=== PATIENT | male | born 1960 | race Caucasian/White ===

== ENCOUNTER → 2017-02-26 | Outpatient (CLI) | payer BC, OTHER ==
[2017-02-26 12:59] LABS: BASO % 0.5 %; BASO ABS # 0.03 K/uL (0-0.2); COMPLETE YES; EOS % 2.4 %; HEMATOCRIT 46.1 % (42-52); IG% 0.2 %; LYMPH % 24.9 %; LYMPH ABS # 1.36 K/uL (1.2-3.4); MEAN CELL VOLUME 85.5 fL (80-100); MEAN CORPUSCULAR HEMOGLOBIN 29.9 pg (25-34); MEAN CORPUSCULAR HGB CONC 34.9 g/dl (32-36); MEAN PLATELET VOLUME 10.2 fL (7.4-10.4); MONO % 6.8 %; NEUT % 65.2 %; PLATELET COUNT 158 K/uL (130-400); RED BLOOD COUNT 5.39 M/uL (4.7-6.1); WHITE BLOOD COUNT 5.46 K/uL (4.8-10.8)
[2017-02-26 13:09] LABS: ALT/SGPT 23 U/L (12-78); AST/SGOT 19 U/L (15-37); BLOOD UREA NITROGEN 13 mg/dl (7-18); CALCIUM 8.9 mg/dl (8.5-10.1); CARBON DIOXIDE 26 mmol/L (21-32); CHLORIDE 106 mmol/L (98-107); CHOLESTEROL 169 mg/dl (0-200); GLUCOSE 102 mg/dl (70-99); POTASSIUM 4.2 mmol/L (3.5-5.1); SODIUM 139 mmol/L (136-145)
[2017-02-26 13:19] LABS: ALB/GLOB RATIO 1.3 (0.9-2); ALKALINE PHOSPHATASE 79 U/L (45-117); CHOLESTEROL/HDL RATIO 4.6; HDL CHOLESTEROL 37 mg/dl; PROSTATE SPECIFIC ANTIGEN 0.266 ng/ml (0.000-4.000); TRIGLYCERIDES 121 mg/dl (0-150); VERY LOW DENSITY LIPOPROT CALC 24 mg/dl
== END | disposition home or self-care (01) ==
LOC: C.LABSPEC 12:20
PROVIDERS: ATTEND Internal Medicine
DX: R53.83 Other fatigue (principal); E78.5 Hyperlipidemia, unspecified; R30.0 Dysuria; Z11.59 Encounter for screening for other viral diseases

== ENCOUNTER 2017-07-31 04:48 | Inpatient (IN) | payer BC ==
[~2017-07-31] VITALS: Ht 185.4 cm; Wt 136.6 kg
[2017-07-31] MEDS: SODIUM CHLORIDE 0.9% 1000ML 1,000 ML IV SCH ×2 (05:12→12:45)
[2017-07-31 05:29] LABS: BASO % 0.8 %; BASO ABS # 0.05 K/uL (0-0.2); EOS % 1.2 %; EOS ABS # 0.07 K/uL (0-0.5); HEMATOCRIT 47.6 % (42-52); HEMOGLOBIN 17.1 g/dL (14.0-18.0); IG# 0.01 K/uL (0.00-0.02); LYMPH % 21.9 %; LYMPH ABS # 1.29 K/uL (1.2-3.4); MEAN CELL VOLUME 85.9 fL (80-100); MEAN CORPUSCULAR HEMOGLOBIN 30.9 pg (25-34); MEAN CORPUSCULAR HGB CONC 35.9 g/dl (32-36); MEAN PLATELET VOLUME 9.5 fL (7.4-10.4); MONO % 10.5 %; MONO ABS # 0.62 K/uL (0.11-0.59); NEUT % 65.4 %; NEUT ABS # 3.85 K/uL (1.4-6.5); PLATELET COUNT 144 K/uL (130-400); RED CELL DISTRIBUTION WIDTH CV 12.7 % (11.5-14.5); RED CELL DISTRIBUTION WIDTH SD 40.4 fL (36.4-46.3); WHITE BLOOD COUNT 5.89 K/uL (4.8-10.8)
[2017-07-31 05:39] LABS: PTT PATIENT 24.7 SECONDS (21.0-31.0)
[2017-07-31] MEDS ORDERED: ASCO500T16 PO (05:39)
[2017-07-31] MEDS ORDERED: MULT-506 PO (05:40)
[2017-07-31] MEDS ORDERED: OMEG10007 PO (05:41)
[2017-07-31 05:48] LABS: ALBUMIN 4.3 gm/dl (3.4-5.0); BLOOD UREA NITROGEN 11 mg/dl (7-18); CALCIUM 9.5 mg/dl (8.5-10.1); CARBON DIOXIDE 30 mmol/L (21-32); CREATININE 1.03 mg/dl (0.60-1.40); GLUCOSE 107 mg/dl (70-99); SODIUM 138 mmol/L (136-145)
[2017-07-31 05:53] LABS: ALKALINE PHOSPHATASE 87 U/L (45-117); ALT/SGPT 24 U/L (12-78); AST/SGOT 17 U/L (15-37); CKMB 2.8 ng/ml (0.5-3.6); TOTAL PROTEIN 7.8 gm/dl (6.4-8.2)
--- NOTE | 2017-07-31 07:40 | DIAGNOSTIC IMAGING REPORT ---
HEAD CT NONCONTRAST CT DOSE: 1228.53 mGy.cm HISTORY: Left-sided body numbness. Stroke TECHNIQUE: Multiaxial CT images of the head were performed without the use of intravenous contrast. Automated exposure control was utilized for this study. A dose lowering technique was utilized adhering to the principles of ALARA. Comparison: None. Findings: The paranasal sinuses and mastoid air cells are clear. The calvarium and skull base are intact. The ventricles and sulci are within normal limits. There is no mass, hematoma, midline shift, or acute infarct. Mild motion artifact. Impression: Mild motion artifact. No acute intracranial abnormality. Electronically signed by: Estrada Louis M.D. 07/31/2017 7:38 AM Dictated Date/Time: 07/31/2017 7:36 AM
--- NOTE | 2017-07-31 07:42 | DIAGNOSTIC IMAGING REPORT ---
MRI LUMBAR SPINE W/O CONTRAST CLINICAL HISTORY: severe left leg weakness TECHNIQUE: Sagittal and axial T1, T2 and STIR images were obtained. COMPARISON STUDY: No previous studies for comparison. OBSERVATIONS: The vertebral bodies and posterior elements appear intact. There is no abnormal bony signal present to suggest a marrow replacement process. L1-2: There is a minor circumferential disc bulge. There is a slight triangular configuration of the thecal sac but significant spinal stenosis is not felt to be present. There is no significant foraminal narrowing L2-3: There is a minor circumferential disc bulge. There is a very slight triangle configuration of the thecal sac. Significant spinal stenosis is not felt to be present. There is no significant foraminal narrowing L3-4: There is a minor circumferential disc bulge. There is no significant spinal or foraminal stenosis. L4-5: There is a minimal circumferential disc bulge. There is no significant spinal or foraminal stenosis. L5-S1: No disc protrusions or extrusions. No evidence of spinal canal or neural foraminal compromise. There is rapid tapering of the thecal sac at the S1 level. This is likely developmental. The conus medullaris and cauda equina appear normal. There is severe left-sided hydronephrosis. This likely is secondary to a long-standing UPJ obstruction. IMPRESSION: 1. Mild multilevel spondylitic changes. No evidence of significant spinal or foraminal stenosis. 2. 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 Rapid tapering of the thecal sac at the S1 level, likely developmental Electronically signed by: Benjamín Mitchell M.D. 07/31/2017 7:40 AM Dictated Date/Time: 07/31/2017 7:33 AM
--- NOTE | 2017-07-31 09:47 | EMERGENCY ROOM VISIT NOTE ---
ED Visit Note First contact with patient: 08:32 Patient case was signed out to me at 0700 hrs. by Yoselin Oneill PA-C. This was pending the MRI. The MRI of the lumbar spine does reveal severe left-sided hydronephrosis. There are only minimal degenerative changes in the back. No findings suggest neurologic compromise. I did reexamine the patient, and he does have a gait abnormality. He seems to be experiencing weakness in the left leg. He is somewhat dragging this leg with walking. There is only minimal pain overlying the left gluteal region by the sciatic nerve. Although this certainly could be musculature spasm in the gluteal region/low back causing sciatic radicular symptoms, because of his appreciated deficit of weakness as well as gait abnormality with very minimal pain do believe that further evaluation and management in the inpatient setting is warranted. I did consult the admission team. Please refer to for the documentation regarding his stay. No evidence of CVA on exam.
--- NOTE | 2017-07-31 11:00 | Medical Consult ---
Consultation Date of Consultation: Jul 31, 2017. Attending Physician: Reason for Consultation: left leg numbness/weakness History of Present Illness Mr. 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 He does usually experience the feeling of legs "falling asleep" when he drives however it usually clears up after getting up out of the car. This time the feeling persists. He had some relief after seeing a chiropractor yesterday. Numbness went from both legs to just left leg. He feels like his leg might give out when he walks. He really has no pain and has taking Aleve last night and yesterday. No loss of control of bowel or bladder. He is eating and drinking normally. ROS Constitutional: no chills, aches, sweats or fever Respiratory: no sob,cough, sputum, or wheezing Cardiac: no chest pain, palpitations, edema, orthopnea or lightheadedness GI: no abdominal pain, nausea, vomiting, diarrhea or constipation : no dysuria or hesitancy Extremities: see HPI Skin: no rash All other systems reviewed and negative Past Medical/Surgical History Pmhx 18 years ago for chronic hydronephrosis, polyps on colonoscopy, Family History Father has htn, DMII Mother has A.fib and gout Social History Smoking Status: Never Smoker Smokeless Tobacco Use: No Alcohol Use: none Drug Use: none Marital Status: Housing status: lives with family Immunizations History of Influenza Vaccine: Yes History of Tetanus Vaccine?: Yes History of Pneumococcal: No History of Hepatitis B Vaccine: Yes Allergies Coded Allergies: No Known Allergies (Verified , 06/24/02) Home Medications Scheduled Ascorbic Acid (Ascorbic Acid), 500 MG PO DAILY Fish Oil ([place]-3), 1 CAP PO DAILY Multivitamin (Multivitamin), 1 TAB PO DAILY Social History Smoking Status: Never Smoker Allergies Coded Allergies: No Known Allergies (Verified , 06/24/02) Home Medications Fish oil, multivitamin, vitamin C Current Inpatient Medications Current Inpatient Medications Medications (Trade) Dose Ordered Sig/Torin Route Start Time Stop Time Status Last Admin Dose Admin Sodium Chloride 1,000 ml @ 50 mls/hr Q20H IV 07/31/17 05:12 08/30/17 05:11 07/31/17 05:12 50 MLS/HR Physical Exam Date Time Temp Pulse Resp B/P (MAP) Pulse Ox O2 Delivery O2 Flow Rate FiO2 07/31/17 09:32 67 20 137/62 97 Room Air 07/31/17 08:09 66 18 127/82 98 Room Air 07/31/17 07:27 76 18 129/72 95 Room Air 07/31/17 06:00 62 16 152/88 96 Room Air 07/31/17 05:41 64 18 146/79 98 Room Air 07/31/17 05:37 99 Room Air 07/31/17 05:15 78 07/31/17 04:54 37.0 73 20 148/83 98 Room Air General: no distress Eyes: normal inspection, PERLL Respiratory: chest non tender, clear to auscultation, normal breath sounds, no respiratory distress, no accessory muscle use Cardiac: regular rate and rhythm, no rub or gallop, no murmur, no edema, no jvd GI/: active bowel sounds, no abd pain or tenderness, soft, non distended Extremities: left leg with decreased rom/strength, 1/10 tenderness to palpation left hip/buttock, no pain or masses to palpation along spine or adjacent musculature, normal strength, non tender, uneven gait, able to walk on heels and toes though a bit wobbly with more difficulty on left than right. Able to feel palpation on left leg though somewhat numb with pins and needles, Neuro/Psych: alert and oriented x 3, normal mood and affect, CN II-XII intact, lower extremity reflexes wnl and equal Skin: normal color, dry Laboratory Results Last 24 Hours Test 07/31/17 05:10 07/31/17 09:28 White Blood Count 5.89 K/uL Red Blood Count 5.54 M/uL Hemoglobin 17.1 g/dL Hematocrit 47.6 % Mean Corpuscular Volume 85.9 fL Mean Corpuscular Hemoglobin 30.9 pg Mean Corpuscular Hemoglobin Concent 35.9 g/dl Platelet Count 144 K/uL Mean Platelet Volume 9.5 fL Neutrophils (%) (Auto) 65.4 % Lymphocytes (%) (Auto) 21.9 % Monocytes (%) (Auto) 10.5 % Eosinophils (%) (Auto) 1.2 % Basophils (%) (Auto) 0.8 % Neutrophils # (Auto) 3.85 K/uL Lymphocytes # (Auto) 1.29 K/uL Monocytes # (Auto) 0.62 K/uL Eosinophils # (Auto) 0.07 K/uL Basophils # (Auto) 0.05 K/uL RDW Standard Deviation 40.4 fL RDW Coefficient of Variation 12.7 % Immature Granulocyte % (Auto) 0.2 % Immature Granulocyte # (Auto) 0.01 K/uL Prothrombin Time 10.7 SECONDS Prothromb Time International Ratio 1.0 Activated Partial Thromboplast Time 24.7 SECONDS Partial Thromboplastin Ratio 1.0 Sodium Level 138 mmol/L Potassium Level 4.0 mmol/L Chloride Level 103 mmol/L Carbon Dioxide Level 30 mmol/L Anion Gap 5.0 mmol/L Blood Urea Nitrogen 11 mg/dl Creatinine 1.03 mg/dl Est Creatinine Clear Calc Drug Dose 116.2 ml/min Estimated GFR () 93.7 Estimated GFR (Non- 80.8 BUN/Creatinine Ratio 10.6 Random Glucose 107 mg/dl Calcium Level 9.5 mg/dl Magnesium Level 2.3 mg/dl Total Bilirubin 0.6 mg/dl Direct Bilirubin 0.1 mg/dl Aspartate Amino Transf (AST/SGOT) 17 U/L Alanine Aminotransferase (ALT/SGPT) 24 U/L Alkaline Phosphatase 87 U/L Total Creatine Kinase 222 U/L Creatine Kinase MB 2.8 ng/ml Creatine Kinase MB Ratio 1.3 Troponin I < 0.015 ng/ml Total Protein 7.8 gm/dl Albumin 4.3 gm/dl Urine Color YELLOW Urine Appearance CLEAR Urine pH 7.5 Urine Specific [place] 1.012 Urine Protein NEG Urine Glucose (UA) NEG Urine Ketones NEG Urine Occult Blood NEG Urine Nitrite NEG Urine Bilirubin NEG Urine Urobilinogen NEG Urine Leukocyte Esterase NEG Assessment & Plan Mr. Sierra is a 57 year old man here for left leg numbness and weakness following heavy outdoor work and three days of prolonged driving. Sciatica vis Meralgia paresthetica - MRI did not show any acute changes, patient has had hydronephrosis since 2000 - Head CT negative for acute processes - recommend discharge to home - rest, NSAIDs, can continue chiropractor appointments as this did provide some relief - may want to consider some outpatient PT especially as this is a recurrent issue
[2017-07-31] MEDS ORDERED: ACETAMINOPHEN 325 MG TAB PO PRN (11:30)
[2017-07-31] MEDS ORDERED: POLYETHYLENE (MIRALAX) 17 GM PACK PO PRN (11:30)
--- NOTE | 2017-07-31 11:40 | History and Physical ---
History & Physical Date & Time of Service: Jul 31, 2017 at 10:12 Chief Complaint: Lwr Body Numb,Like Falling Asleep,Loosing Strength Primary Care Physician: James Herr M.D. History of Present Illness Mr. 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 He does usually experience the feeling of legs "falling asleep" when he drives however it usually clears up after getting up out of the car. This time the feeling persists. He had some relief after seeing a chiropractor yesterday. Numbness went from both legs to just left leg. He feels like his leg might give out when he walks. He really has no pain and has taking Aleve last night and yesterday. No loss of control of bowel or bladder. He is eating and drinking normally. ROS Constitutional: no chills, aches, sweats or fever Respiratory: no sob,cough, sputum, or wheezing Cardiac: no chest pain, palpitations, edema, orthopnea or lightheadedness GI: no abdominal pain, nausea, vomiting, diarrhea or constipation : no dysuria or hesitancy Extremities: see HPI Skin: no rash All other systems reviewed and negative Past Medical/Surgical History Pmhx 18 years ago for chronic hydronephrosis, polyps on colonoscopy, Family History Father has htn, DMII Mother has A.fib and gout Social History Smoking Status: Never Smoker Smokeless Tobacco Use: No Alcohol Use: none Drug Use: none Marital Status: Housing status: lives with family Immunizations History of Influenza Vaccine: Yes History of Tetanus Vaccine?: Yes History of Pneumococcal: No History of Hepatitis B Vaccine: Yes Allergies Coded Allergies: No Known Allergies (Verified , 06/24/02) Home Medications Scheduled Ascorbic Acid (Ascorbic Acid), 500 MG PO DAILY Fish Oil ([place]-3), 1 CAP PO DAILY Multivitamin (Multivitamin), 1 TAB PO DAILY Physical Exam Vital Signs Date Time Temp Pulse Resp B/P (MAP) Pulse Ox O2 Delivery O2 Flow Rate FiO2 07/31/17 09:32 67 20 137/62 97 Room Air 07/31/17 08:09 66 18 127/82 98 Room Air 07/31/17 07:27 76 18 129/72 95 Room Air 07/31/17 06:00 62 16 152/88 96 Room Air 07/31/17 05:41 64 18 146/79 98 Room Air 07/31/17 05:37 99 Room Air 07/31/17 05:15 78 07/31/17 04:54 37.0 73 20 148/83 98 Room Air General: no distress Eyes: normal inspection, PERLL Respiratory: chest non tender, clear to auscultation, normal breath sounds, no respiratory distress, no accessory muscle use Cardiac: regular rate and rhythm, no rub or gallop, no murmur, no edema, no jvd GI/: active bowel sounds, no abd pain or tenderness, soft, non distended Extremities: left leg with decreased rom/strength, 1/10 tenderness to palpation left hip/buttock, no pain or masses to palpation along spine or adjacent musculature, normal strength, non tender, uneven gait, able to walk on heels and toes though a bit wobbly with more difficulty on left than right. Able to feel palpation on left leg though somewhat numb with pins and needles, Neuro/Psych: alert and oriented x 3, normal mood and affect, CN II-XII intact, lower extremity reflexes wnl and equal Skin: normal color, dry Diagnostics Laboratory Results Results Past 24 Hours Test 07/31/17 05:10 07/31/17 09:28 Range/Units White Blood Count 5.89 4.8-10.8 K/uL Red Blood Count 5.54 4.7-6.1 M/uL Hemoglobin 17.1 14.0-18.0 g/dL Hematocrit 47.6 42-52 % Mean Corpuscular Volume 85.9 80-100 fL Mean Corpuscular Hemoglobin 30.9 25-34 pg Mean Corpuscular Hemoglobin Concent 35.9 32-36 g/dl Platelet Count 144 130-400 K/uL Mean Platelet Volume 9.5 7.4-10.4 fL Neutrophils (%) (Auto) 65.4 % Lymphocytes (%) (Auto) 21.9 % Monocytes (%) (Auto) 10.5 % Eosinophils (%) (Auto) 1.2 % Basophils (%) (Auto) 0.8 % Neutrophils # (Auto) 3.85 1.4-6.5 K/uL Lymphocytes # (Auto) 1.29 1.2-3.4 K/uL Monocytes # (Auto) 0.62 0.11-0.59 K/uL Eosinophils # (Auto) 0.07 0-0.5 K/uL Basophils # (Auto) 0.05 0-0.2 K/uL RDW Standard Deviation 40.4 36.4-46.3 fL RDW Coefficient of Variation 12.7 11.5-14.5 % Immature Granulocyte % (Auto) 0.2 % Immature Granulocyte # (Auto) 0.01 0.00-0.02 K/uL Prothrombin Time 10.7 9.0-12.0 SECONDS Prothromb Time International Ratio 1.0 0.9-1.1 Activated Partial Thromboplast Time 24.7 21.0-31.0 SECONDS Partial Thromboplastin Ratio 1.0 Sodium Level 138 136-145 mmol/L Potassium Level 4.0 3.5-5.1 mmol/L Chloride Level 103 98-107 mmol/L Carbon Dioxide Level 30 21-32 mmol/L Anion Gap 5.0 3-11 mmol/L Blood Urea Nitrogen 11 7-18 mg/dl Creatinine 1.03 0.60-1.40 mg/dl Est Creatinine Clear Calc Drug Dose 116.2 ml/min Estimated GFR () 93.7 Estimated GFR (Non- 80.8 BUN/Creatinine Ratio 10.6 10-20 Random Glucose 107 70-99 mg/dl Calcium Level 9.5 8.5-10.1 mg/dl Magnesium Level 2.3 1.8-2.4 mg/dl Total Bilirubin 0.6 0.2-1 mg/dl Direct Bilirubin 0.1 0-0.2 mg/dl Aspartate Amino Transf (AST/SGOT) 17 15-37 U/L Alanine Aminotransferase (ALT/SGPT) 24 12-78 U/L Alkaline Phosphatase 87 45-117 U/L Total Creatine Kinase 222 39-308 U/L Creatine Kinase MB 2.8 0.5-3.6 ng/ml Creatine Kinase MB Ratio 1.3 0-3.0 Troponin I < 0.015 0-0.045 ng/ml Total Protein 7.8 6.4-8.2 gm/dl Albumin 4.3 3.4-5.0 gm/dl Urine Color YELLOW Urine Appearance CLEAR CLEAR Urine pH 7.5 4.5-7.5 Urine Specific [place] 1.012 1.000-1.030 Urine Protein NEG NEG Urine Glucose (UA) NEG NEG Urine Ketones NEG NEG Urine Occult Blood NEG NEG Urine Nitrite NEG NEG Urine Bilirubin NEG NEG Urine Urobilinogen NEG NEG Urine Leukocyte Esterase NEG NEG Impression Assessment and Plan Mr. Sierra is a 57 year old man here for left leg weakness Left leg weakness - admit obs med surg - MRI T spine and C spine as patient has loss of sensation on right abdomen as well as left leg - consult neuro - PT/OT - ibuprofen, tylenol for pain Chronic left side hydronephrosis - apparent since 2000, no need for acute intervention Full code SCDs Advanced Directives Existing Advance Directive: No Existing Living Will: No Existing Power of Billing And Accounting Staff Assistant: No Existing Health Care Proxy: No Resuscitation Status full code VTE Prophylaxis Will order VTE Prophylaxis: Yes Reviewed: Pt Seen/Exam by Me History GRAPHIC PRODUCTION ARTIST supervision Note: I interviewed and examined the patient. Discussed with DIGNA Cronin and agree with findings and plan as documented in the note. Any exceptions or clarifications are listed here: Patient is a 57-year-old male who presents with acute onset yesterday of left lower extremity weakness, and bilateral numbness and tingling in the lower extremities. He is also had some pain in the left lower back that radiates through the left buttocks to the hip. He reports taking several long car rides in the last week and typically gets paresthesias in his bilateral legs with long car rides that goes away when he gets up and walks around. He did not have any long car rides yesterday and this occurred. He went to the chiropractor and had his lower back manipulated which did help relieve the symptoms for a couple of hours, but then they returned. He feels great difficulty in walking and feels like he is going to have his left leg give out. He denies neck pain, denies fevers or chills, denies headache. He has no symptoms that he is aware of in his upper extremities. He has no visual changes , no sore throat, no shortness of breath or cough, no chest pain, no abdominal pain, no changes in bowel habits, no dysuria. Other past history as above Vital signs reviewed Gen: AAOx3, NAD HEENT: anicteric sclerae, EOMI CV: RRR no mgr nl S1S2 Pulm: CTAB no wcr Abd: +BS soft NT ND no masses or hernias Ext: no edema, 2+ DP pulses Skin: no rashes, warm/dry Neuro: 5 out of 5 strength in the bilateral upper extremities, right lower extremity with 5 out of 5 strength throughout, left lower extremity with 4 out of 5 strength in the hip flexors, with knee extension and flexion, and great toe dorsiflexion; sensation intact to light touch throughout upper and lower extremities, but with pinprick testing, he is decreased on the right in the entire right lower extremity, as well as all the way up his anterior torso to just below the nipple around T5, he also has decreased sensation to pinprick in the right fifth finger and forearm, but is intact to pinprick at the right deltoid muscle; DTRs-brisk at 2-3+ in the patellar and Achilles bilaterally, as well as 2+ in the left biceps/triceps/brachial radialis, but unable to elicit DTR in the right biceps triceps and brachial radialis, gait is somewhat ataxic All laboratory values reviewed and are within normal limits with regards to CBC , PRP, TSH, Lyme disease negative, ESR normal, CRP normal, troponin negative, LFTs negative or normal, INR normal MRI of the lumbar spine with some mild bulging disks but nothing significant Patient is a 57-year-old male here with left lower extremity weakness, sensory deficit to the level of approximately T5 on the right side of his body, ataxia, concerning for thoracic or cervical spine lesion. -Recommended to check cervical and thoracic spine MRIs with and without contrast to assess for spinal cord lesion-at the time of this dictation, the results were back and showed a lesion at the left C6-7 spinal cord level that was 6 x 3 mm that was not enhancing on postcontrast images. This could be inflammatory versus encephalomalacia or demyelinating process -We will check brain MRI with and without contrast -We will make n.p.o. after midnight for LP in the morning-check routine studies as well as Lyme, MS panel -Consider starting IV Solu-Medrol 1 g daily 3 days after LP as per neurology recommendations -Discussed case with neurology, Dr. Bone, at length on the phone with my findings -Follow-up on RPR and B12 levels when available Documented By: Shelley Camarena
[2017-07-31 12:30] VITALS: BP 134/71; PULSE 78; TEMP 37; O2SAT 98; Ht 185.4 cm; Wt 136.6 kg
[2017-07-31 15:01] VITALS: BP 133/82; PULSE 57; TEMP 36.8; O2SAT 98
[2017-07-31] MEDS: IBUPROFEN 600 MG TAB PO SCH ×2 (16:05→20:20)
[2017-07-31] MEDS ORDERED: IV FLUIDS COMPLETED PRN (16:30)
[2017-07-31] MEDS ORDERED: GADAVIST IV PRN (18:30)
--- NOTE | 2017-07-31 18:47 | DIAGNOSTIC IMAGING REPORT ---
THORACIC SPINE COMBO HISTORY: Pain. Neuropathy. sensory deficit T5 and below on right, LLE weakness TECHNIQUE: Multiplanar multisequence MRI of the thoracic spine was performed both before and after the intravenous administration of contrast. COMPARISON: None. FINDINGS: Unremarkable signal characteristics of the vertebral bodies. Mild/moderate degenerative disc changes throughout. Signal characteristics of the thoracic spinal cord are unremarkable. No evidence for abnormal postcontrast enhancement. Mild multilevel slight disc bulges with mild posterior osteophytic changes throughout. No major compromise of the spinal canal or neural foramina. No significant distention of the central canal. IMPRESSION: Moderate degenerative disc change throughout the entire thoracic region. No major compromise of the spinal canal or neural foramina. No abnormal postcontrast enhancement. Minimal/mild multilevel disc bulges The above report was generated using voice recognition software. It may contain grammatical, syntax or spelling errors. Electronically signed by: Evin Swartz M.D. 07/31/2017 6:46 PM Dictated Date/Time: 07/31/2017 6:42 PM
--- NOTE | 2017-07-31 20:06 | DIAGNOSTIC IMAGING REPORT ---
CERVICAL SPINE COMBO HISTORY: Pain. Neuropathy. T5 and below cervical sensory deficit on right,LLE weakness TECHNIQUE: Multiplanar multisequence MRI of the cervical spine was performed both before and after the use of intravenous contrast. COMPARISON STUDY: None. FINDINGS: Limited study technically due to severe patient motion. Normal signal characteristics of the vertebral bodies. Moderate degenerative disc change throughout. Signal characteristics of the cervical cord are remarkable for a focus of increased signal involving the left lateral aspect of the cervical cord at C6-C7. This shows no significant postcontrast enhancement. No additional focal areas of increased signal are present. This measures 6 x 3.7 mm.. C2-C3: No significant central canal or neural foraminal narrowing. C3-C4: Mild broad-based bulging disc. Minimal impact upon the anterior cervical cord. Moderate osteophytic narrowing or right as well as left neural foramina. C4-C5: Broad-based right posterior disc herniation. Moderate impact upon the right anterior cervical cord. Significant narrowing right as well as left neural foramina. C5-C6: Right lateral bulging disc. Significant narrowing of the right neuroforamina. Broad-based central component is in contact with but shows no deformity of the cervical cord. Mild narrowing left neuroforamina. C6-C7: Broad-based right central disc herniation. Considerable narrowing of the right neural foramina. Moderate narrowing of the left neural foramina. Increased signal left lateral aspect of the cervical cord showing no significant post postcontrast enhancement. C7-T1: Broad-based left central bulging disc. No impact upon the cervical cord. IMPRESSION: 1. Limited study technically due to considerable patient motion. 2. Moderate degenerative disc change throughout the entire cervical region. 3. Multilevel broad-based bulging discs with a right central posterior disc herniation at C4-C5 and C6-C7. 4. Considerable narrowing of multilevel right and to lesser extent left neural foramina as described. 5. Focus of increased signal left cervical cord C6-C7 measuring 6 x 3.7 mm. 6. This shows no abnormal postcontrast enhancement. 7. Differential considerations must include a demyelinating disorder, versus the possibility of cord encephalomalacia due to a variety of entities. Transverse myelitis is considered less likely. The above report was generated using voice recognition software. It may contain grammatical, syntax or spelling errors. Electronically signed by: Evin Swartz M.D. 07/31/2017 8:04 PM Dictated Date/Time: 07/31/2017 7:55 PM
[2017-08-01] VITALS (7 sets, daily range): BP systolic 118–160; BP diastolic 69–85; PULSE 62–73; TEMP 36.8–37; O2SAT 96–98
--- NOTE | 2017-08-01 06:05 | EMERGENCY ROOM VISIT NOTE ---
History First contact with patient: 05:03 Chief Complaint: NEURO SYMPTOMS Stated Complaint: LWR BODY NUMB,LIKE FALLING ASLEEP,LOOSING STRENGTH Nursing Triage Summary: Pt reports yesterday he developed funny sensation along lower back and leg numbness. Pt went to the chiropractor and felt better. Then around 1am he woke up to go to the bathroom and left leg felt numb and had difficulty walking. Pt denies any known back problems. Pt reports he was bending and lifting alot on Friday. History of Present Illness The patient is a 57 year old male who presents to the Emergency Room with complaints of left leg weakness for the past day who went to the chiropractor yesterday with minimal improvement of symptoms. Patient states he did a lot of strenuous activity on Friday. Patient states for the past few days he has been doing a lot of sitting in the car which also causes problems with his back. Patient states his left leg feels weak and has difficulty using it. Patient denies recent illness, bilateral leg weakness, chest pain, dyspnea, fever, chills, loss of bowel or bladder control, saddle anesthesia, IV drug abuse, back pain. No injury to the area. Patient is able to urinate and defecate without issues. Review of Systems An 10 system review of systems was completed with positives and pertinent negatives listed in the HPI. Past Medical/Surgical History Medical Problems: (1) Left leg weakness Kidney stones Social History Smoking Status: Never Smoker Smokeless Tobacco Use: No Drug Use: none Marital Status: Housing Status: lives with family Occupation Status: employed Current/Historical Medications Scheduled Ascorbic Acid (Ascorbic Acid), 500 MG PO DAILY Fish Oil (Huggins-3), 1 CAP PO DAILY Multivitamin (Multivitamin), 1 TAB PO DAILY Physical Exam Vital Signs Date Time Temp Pulse Resp B/P (MAP) Pulse Ox O2 Delivery O2 Flow Rate FiO2 07/31/17 11:14 68 18 130/72 98 Room Air 07/31/17 09:32 67 20 137/62 97 Room Air 07/31/17 08:09 66 18 127/82 98 Room Air 07/31/17 07:27 76 18 129/72 95 Room Air 07/31/17 06:00 62 16 152/88 96 Room Air 07/31/17 05:41 64 18 146/79 98 Room Air 07/31/17 05:37 99 Room Air 07/31/17 05:15 78 07/31/17 04:54 37.0 73 20 148/83 98 Room Air Physical Exam VITALS: Vitals are noted on the nurse's note and reviewed by myself. Vital signs stable. GENERAL: Pleasant male, in no acute distress, nondiaphoretic, well-developed well-nourished. SKIN: The skin was without rashes, erythema, edema, or bruising. There is no tenting of the skin. Capillary reflex less than 2 seconds. HEAD: Normocephalic atraumatic. EARS: External auditory canals clear, tympanic membranes pearly petersen without erythema or effusion bilaterally. EYES: Pupils equal round and reactive to light and accommodation. Conjunctivae without injection, sclerae without icterus. Extraocular movements intact. NOSE: Patent, turbinates without inflammation or discharge. MOUTH: Mucous membranes moist. Pharynx without erythema or exudate. Uvula midline. Airway patent. Tongue does not deviate. NECK: Supple without nuchal rigidity. No lymphadenopathy. No thyromegaly. Cervical spine is nontender. No JVD. HEART: Regular rate and rhythm without murmurs gallops or rubs. LUNGS: Clear to auscultation bilaterally without wheezes, rales or rhonchi. No retractions or accessory muscle use. ABDOMEN: Positive bowel sounds x 4. Normal tympanic percussion. Soft, nontender, without masses or organomegaly. Casey sign negative. No guarding or rebound tenderness. No CVA tenderness MUSCULOSKELETAL: No muscle atrophy, erythema, or edema noted. No thoracic or lumbar tenderness on exam, 5 out of 5 strength in the right leg, 4/5 strength in the left leg. Patellar reflexes +2 equal and present bilaterally. NEURO: Patient was alert and oriented to person place and time. Normal sensation to light and sharp touch. Patient drags his left leg when he ambulates. no other focal neurological deficits. Medical Decision & Procedures Laboratory Results Test 07/31/17 05:10 07/31/17 09:28 RDW Standard Deviation 40.4 fL (36.4-46.3) RDW Coefficient of Variation 12.7 % (11.5-14.5) White Blood Count 5.89 K/uL (4.8-10.8) Red Blood Count 5.54 M/uL (4.7-6.1) Hemoglobin 17.1 g/dL (14.0-18.0) Hematocrit 47.6 % (42-52) Mean Corpuscular Volume 85.9 fL (80-100) Mean Corpuscular Hemoglobin 30.9 pg (25-34) Mean Corpuscular Hemoglobin Concent 35.9 g/dl (32-36) Platelet Count 144 K/uL (130-400) Mean Platelet Volume 9.5 fL (7.4-10.4) Neutrophils (%) (Auto) 65.4 % Lymphocytes (%) (Auto) 21.9 % Monocytes (%) (Auto) 10.5 % Eosinophils (%) (Auto) 1.2 % Basophils (%) (Auto) 0.8 % Neutrophils # (Auto) 3.85 K/uL (1.4-6.5) Lymphocytes # (Auto) 1.29 K/uL (1.2-3.4) Monocytes # (Auto) 0.62 K/uL (0.11-0.59) Eosinophils # (Auto) 0.07 K/uL (0-0.5) Basophils # (Auto) 0.05 K/uL (0-0.2) Immature Granulocyte % (Auto) 0.2 % Immature Granulocyte # (Auto) 0.01 K/uL (0.00-0.02) Erythrocyte Sedimentation Rate 4 mm/hr (0-14) Prothrombin Time 10.7 SECONDS (9.0-12.0) Prothromb Time International Ratio 1.0 (0.9-1.1) Activated Partial Thromboplast Time 24.7 SECONDS (21.0-31.0) Partial Thromboplastin Ratio 1.0 Est Creatinine Clear Calc Drug Dose 116.2 ml/min Magnesium Level 2.3 mg/dl (1.8-2.4) Total Bilirubin 0.6 mg/dl (0.2-1) Direct Bilirubin 0.1 mg/dl (0-0.2) Aspartate Amino Transf (AST/SGOT) 17 U/L (15-37) Alanine Aminotransferase (ALT/SGPT) 24 U/L (12-78) Alkaline Phosphatase 87 U/L (45-117) Total Creatine Kinase 222 U/L (39-308) Creatine Kinase MB 2.8 ng/ml (0.5-3.6) Creatine Kinase MB Ratio 1.3 (0-3.0) Troponin I < 0.015 ng/ml (0-0.045) C-Reactive Protein < 0.29 mg/dl (0-0.29) Total Protein 7.8 gm/dl (6.4-8.2) Albumin 4.3 gm/dl (3.4-5.0) Thyroid Stimulating Hormone (TSH) 2.760 uIu/ml (0.300-4.500) Rapid Plasma Reagin NONREACTIVE (NONREACT) Lyme Disease IgG Antibody NEG (NEG) Lyme Disease IgM Antibody NEG (NEG) Urine Color YELLOW Urine Appearance CLEAR (CLEAR) Urine pH 7.5 (4.5-7.5) Urine Specific [place] 1.012 (1.000-1.030) Urine Protein NEG (NEG) Urine Glucose (UA) NEG (NEG) Urine Ketones NEG (NEG) Urine Occult Blood NEG (NEG) Urine Nitrite NEG (NEG) Urine Bilirubin NEG (NEG) Urine Urobilinogen NEG (NEG) Urine Leukocyte Esterase NEG (NEG) Medications Administered Medications (Trade) Dose Ordered Sig/Torin Route Start Time Stop Time Status Last Admin Dose Admin Sodium Chloride 1,000 ml @ 50 mls/hr Q20H IV 07/31/17 05:12 07/31/17 13:43 DC 07/31/17 12:45 50 MLS/HR ED Course Prior records/ancillary studies reviewed and summarized above. Nursing notes reviewed. Additional history obtained from family The patient's history was concerning for left leg weakness. Differential diagnosis: Etiologies such as metabolic, infection, hypo/hyperglycemia, electrolyte abnormalities, cardiac sources, intracerebral event, toxicologic, neurologic, conus medullaris syndrome, cauda equina syndrome, epidural abscess, epidural hematoma, fracture, subluxation, UTI, pyelonephritis, strain, muscular spasm As well as others were entertained. Physical examination: As above. ER treatment provided: IV Lock stroke scale of 1 On reassessment the patient felt better. Diagnostics interpretation by me: ECG: Normal sinus, normal intervals, no acute ST-T wave changes. Impression normal sinus rhythm interpreted by myself The labs revealed stable H&H Imaging studies: Head CT negative intracranial bleed or fracture per radiology MRI pending of the spine Exam and history seem consistent with left leg weakness. By the evaluation outlined above emergent etiologies such as infection, electrolyte abnormalities, cardiac sources, intracerebral event, toxologic, abnormalities blood glucose, metabolic, as well as others were deemed relatively unlikely. Case is signed out to SIDDHARTHA Barriga, pending MRI and reevaluation in stable condition. Case reviewed with my attending The chart was completed utilizing [employer] Speech voice recognition software. Grammatical errors, random word insertions, pronoun errors, and incomplete sentences are an occassional consequence of this system due to software limitations, ambient noise, and hardware issues. Any formal questions or concerns about the content, text, or information contained within the body of this dictation should be directly addressed to the physician assistant research scientist for clarification. Medical Decision As above Medication Reconcilliation Current Medication List: was personally reviewed by me Blood Pressure Screening Patient's blood pressure: Normal blood pressure Impression Primary Impression: Left leg weakness Time Last Known Well Greater than 24 hours Stroke t-PA Criteria Reviewed Does NOT meet criteria for t-PA Reason t-PA Not Given Treatment not indicated Departure Information Referrals James Herr M.D. (PCP) Patient Instructions [facility]
[2017-08-01 08:08] LABS: HEMATOCRIT 45.1 % (42-52); HEMOGLOBIN 16.3 g/dL (14.0-18.0); MEAN CELL VOLUME 85.1 fL (80-100); MEAN CORPUSCULAR HEMOGLOBIN 30.8 pg (25-34); MEAN CORPUSCULAR HGB CONC 36.1 g/dl (32-36); MEAN PLATELET VOLUME 9.3 fL (7.4-10.4); PLATELET COUNT 135 K/uL (130-400); RED CELL DISTRIBUTION WIDTH CV 12.9 % (11.5-14.5); RED CELL DISTRIBUTION WIDTH SD 39.6 fL (36.4-46.3); WHITE BLOOD COUNT 6.45 K/uL (4.8-10.8)
[2017-08-01 08:43] LABS: CALCIUM 8.8 mg/dl (8.5-10.1); CREATININE 0.98 mg/dl (0.60-1.40); POTASSIUM 4.2 mmol/L (3.5-5.1)
--- NOTE | 2017-08-01 09:29 | Hospitalist Progress Note ---
Hospitalist Progress Note Date of Service Aug 01, 2017. (Vicki Nicolas PA-C) Subjective Pt evaluation today including: conversation w/ patient, conversation w/ family , physical exam, chart review, lab review, review of studies Pain: L buttocks pain with ambulation PO Intake: Good Voiding: no voiding problems The patient was seen and examined this morning. Pts two sons are present at bedside. He reports feeling better today compared to yesterday. Denies any numbness or tingling going down into the le he is having some ft leg. He has been ambulating very minimally at bedside. Minimal left shoulder blade tension/ deep pain that feels sore, he denies any sharp shooting or referred pain. Pain is not related to position. He normally takes aleve once daily for muscle pain on a regular basis. He is anticipating LP which is to be done early afternoon today. The patient was seen by neurology early this morning. MRI of the brain has since been completed and is negative for any acute findings. Additional Comments: Constitutional: No fever, sweats or chills Eyes: No diplopia, no worsening or blurred vision ENT: normal hearing, no trouble swallowing Respiratory: No cough, sputum, dyspnea at rest or on exertion Cardiovascular: No chest pain, tightness or palpitations Abdomen: No pain, nausea, vomiting, diarrhea or constipation Musculoskeletal: Left hip slightly sore, L shoulder blade deep soreness/ache, no numbness or tingling, able to ambulate without assistive devices, No calf pain, swelling Neurologic: No weakness, numbness/tingling, or balance problems Psychiatric: No anxiety or depression Skin: No rash or itch normal (Vicki Nicolas, TODD) Objective Vital Signs Date Time Temp Pulse Resp B/P (MAP) Pulse Ox O2 Delivery O2 Flow Rate FiO2 08/01/17 07:57 Room Air 08/01/17 07:34 36.8 67 18 138/84 (102) 96 Room Air 08/01/17 00:00 Room Air 08/01/17 00:00 36.8 64 20 147/85 (105) 98 Room Air 07/31/17 16:30 Room Air 07/31/17 15:01 36.8 57 18 133/82 (99) 98 Room Air 3/22/18 12:30 37.0 78 18 134/71 98 Room Air 07/31/17 11:14 68 18 130/72 98 Room Air 07/31/17 09:32 67 20 137/62 97 Room Air (Vicki Nicolas PA-C) Physical Exam Notes: General: awake, alert, no apparent distress, morbidly obese Head: Normocephalic, atraumatic ENT: PERRL, EOMI, no pharyngeal exudate, mucous membranes moist Chest: Clear to auscultation, on room air, no adventitious breath sounds Cardiac: Regular rate and rhythm, no murmur, no JVD, normal peripheral pulses, good capillary refill Abdominal: NABS x 4 quadrants, soft, nontender to palpation, no rebound, guarding or tenderness Extremities: Normal inspection, no peripheral edema or erythema, calfs nontender to palpation. no point tenderness over L shoulder region, no muscle spasm of paraspinal muscles. Psych: Normal mood and affect Neuro: Gait examined - pt favoring the right leg with offloading of leg leg pressure, AAO x 3, strength intact bilaterally and related 5/5, no motor deficits, speech is clear, no peripheral sensory deficits (Vicki Nicolas PA-C) Laboratory Results Last 24 Hours Test 07/31/17 09:28 07/31/17 12:33 08/01/17 04:44 08/01/17 07:54 Urine Color YELLOW Urine Appearance CLEAR Urine pH 7.5 Urine Specific Bruce 1.012 Urine Protein NEG Urine Glucose (UA) NEG Urine Ketones NEG Urine Occult Blood NEG Urine Nitrite NEG Urine Bilirubin NEG Urine Urobilinogen NEG Urine Leukocyte Esterase NEG Vitamin B12 Level 536 pg/mL White Blood Count 6.45 K/uL Red Blood Count 5.30 M/uL Hemoglobin 16.3 g/dL Hematocrit 45.1 % Mean Corpuscular Volume 85.1 fL Mean Corpuscular Hemoglobin 30.8 pg Mean Corpuscular Hemoglobin Concent 36.1 g/dl RDW Standard Deviation 39.6 fL RDW Coefficient of Variation 12.9 % Platelet Count 135 K/uL Mean Platelet Volume 9.3 fL Sodium Level 139 mmol/L Potassium Level 4.2 mmol/L Chloride Level 106 mmol/L Carbon Dioxide Level 28 mmol/L Anion Gap 5.0 mmol/L Blood Urea Nitrogen 13 mg/dl Creatinine 0.98 mg/dl Est Creatinine Clear Calc Drug Dose 122.1 ml/min Estimated GFR () 99.5 Estimated GFR (Non- 85.8 BUN/Creatinine Ratio 13.3 Random Glucose 108 mg/dl Calcium Level 8.8 mg/dl (Vicki Nicolas PA-C) Assessment and Plan This is a 57 yo M with PMhx of LLE weakness - Imaging completed including CT cervical, thoracic and lumbar spine Cervical CT: lesions from C6-C7 involving the left cervical cord measures 6 x 3.7 mm, moderate degenerative disc change throughout the entire cervical region. Multilevel broad-based bulging discs with a right central posterior disc herniation at C4-C5 and C6-C7. Thoracic CT: moderate degenerative disc change throughout the entire thoracic region. Lumbar CT: Mild multilevel spondylitic changes. No evidence of significant spinal or foraminal stenosis. 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 Rapid tapering of the thecal sac at the S1 level, likely developmental - Neurology consulted - appreciate recs - no need for spinal surgeon consult at this time. - MRI brain completed this morning and is also negative for acute findings. - Possible that this is all post traumatic from heavy lifting vs demyelinating process such as MS - LP completed today: Follow AFB, cryptococcal, fungal and gram stain - Consider 1 g IV solumedrol per neuro for for anti-inflammatory properties following the LP, 1 week tapering dose. - No wbc to suggest infectious etiology, follow PRP and CBC - Analgesia with tylenol and ibuprofen prn, ice - PT/OT consulted - normally ambulates without assistance DVT ppx: Ambulatory CODE STATUS: FULL CODE Disposition: From home, lives with (Vicki Nicolas PA-C) Attending Note & Attestation - Pt seen/examined, chart reviewed, care plan d/w MARIMAR Nicolas. I agree w/ the [place] components of her progress note. Pt's paresthesias & motor weakness are all improved. Had LP - I saw him post-procedure - he was w/o complaints. No new neuro symptoms. VSS no fever gen - nad heart - RRR lungs - CTA b/l abd - soft, NT ext - no edema neuro - strength 5/5 x 4 exts; sensation intact to light touch x 4 exts LP - cell counts - 0 WBCs 2 RBCs 49 total protein gram stain negative MRI brain w/o lesions/tumor/mass/stroke(s) A/P: Paresthesias/motor weakness - resolving. [place] to be due to DJD. Extensive w/u thus far negative except for considerable DJD throughout the entire spine and a C6-C7 lesion on the left, felt to be chronic by neurology. No evidence of lyme's, thyroid disease, low B12, syphilis, etc. MS felt to be unlikely. 1 gm of solumedrol over the next 24 hours. hopefully home tomorrow after such. f/u Dr. Bone as outpatient Derek HEALY MD (Jam Healy MD)
--- NOTE | 2017-08-01 09:53 | Neurology Consultation ---
Neurology Consultation Date of Consultation: Aug 01, 2017. Attending Physician: Jam Healy MD Primary Care Physician: James Herr M.D. Reason for Consultation: Patient is a 57-year-old, who was asked to see the request of Dr. Camarena and Blessing Cronin PA-C, for neurologic consultation regarding weakness and numbness. History of Present Illness Source: patient, caregiver, spouse, hospital records Patient tells me that he has had longstanding intermittent low back pain. In high school he played football and wrestled at [employer], and head multiple concussions and injuries. 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 This created a loss of consciousness and he had significant headache and neck pain for several days to weeks thereafter. He has had multiple injuries with his occupation and has had chronic low back pain intermittently over time. When he sits too long, such as in a car, he will get increased low back pain. He typically does not have neck pain. He does not have any significant upper extremity issues except for some discomfort along the ulnar forearm. He has intermittent leg weakness at times his low back gets particularly worse. When he sleeps at night he can have arm numbness and after waking up he will shake his arm and the numbness will resolve within a few minutes. This never happens to his legs. He gets no arm numbness during the daytime. He was in his usual state of health when he did a considerable amount of work at his place of residence on July 26. 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 He was doing a considerable amount of bending, lifting, gripping, and twisting. He had some low back pain thereafter. The next day he spent a total of 5 hours in the car and had some low back pain while sitting. On July 28 and he again had long car rides for his employment and had low back pain and some left lower extremity tightness. On July 30 he was doing a lot of heavy lifting and shuffled considerable amount of snow as well. He had leg weakness bilaterally but no numbness in the limbs and no neck pain. He saw a chiropractor that evening who adjusted his low back and this helps some. On July 31 he woke up in the middle the night with some tingling in his right lower extremity and weakness in his left lower extremity and trouble walking. He arrived to the emergency room on July 31 at 0454 hours with a temperature 37.0, pulse 73, respiratory 20, and blood pressure 148/83. He was noted to have some left lower extremity weakness. CT scan of the head was unremarkable. Laboratory studies revealed a normal CBC, Chem profile, ESR, B12, TSH, RPR, and Lyme antibody titers. MRI of the lumbar spine showed some diffuse degenerative changes with no significant stenosis. He has neural foraminal stenosis diffusely. Patient had MRI of the thoracic spine which showed diffuse degenerative changes of disc in bone with no significant stenoses or other abnormalities. MRI of the cervical spine showed significant spinal stenosis with impingement of the cord (but no compression) at C4-5. There was a linear lesion of about 6 millimeters at the C6-7 level in the cord off with midline. Etiology of this is unknown and it did not enhance. He has severe right greater than left diffuse neural foraminal stenosis in the spinal cord. I reviewed all 3 MRI films and reports with the patient and his who is at bedside. This morning, patient feels that he has no tingling or weakness in his arms. Left lower extremity is stronger than yesterday but still little bit weak. His balance is better going up to the bathroom. He has no incontinence of urine and he only has mild low back discomfort. 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 Hydronephrosis seen on imaging study No history of renal stones, heart disease, diabetes, hypertension, dyslipidemia , stroke, asthma, or ulcer disease. Post tonsillectomy and wisdom teeth. Family History Mother, age 77, has a history of atrial fibrillation, gout, and diverticulitis. Father age 75, has diabetes. Social History Patient has never used tobacco products or smoke. He does not consume alcohol. 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 Smoking Status: Never smoker Smokeless Tobacco Use: No Alcohol Use: none Drug Use: none Marital Status: Housing Status: lives with family Occupation Status: employed Allergies Coded Allergies: No Known Allergies (Verified , 06/24/02) Current Inpatient Medications Current Inpatient Medications Medications (Trade) Dose Ordered Sig/Torin Route Start Time Stop Time Status Last Admin Dose Admin Acetaminophen (Tylenol Tab) 650 mg Q4H PRN PO 07/31/17 11:30 08/30/17 11:29 Polyethylene (Miralax Powder Packet) 17 gm DAILY PRN PO 07/31/17 11:30 08/30/17 11:29 Miscellaneous (Iv Fluids Completed) 1 ea PRN PRN N/A 07/31/17 16:30 07/31/18 16:29 Gadobutrol (Gadavist) 13.5 mmol UD PRN IV 07/31/17 18:30 08/04/17 18:29 Review of Systems Constitutional: + weakness, No fever, No fatigue Eyes: No worsening of vision, No diplopia ENT: No hearing loss, No tinnitus, No trouble swallowing Respiratory: No cough, No shortness of breath Cardiovascular: No chest pain, No palpitations Abdomen: No pain, No nausea Musculoskeletal: + joint pain, No muscle pain Genitourinary - Male: + urinary frequency, No dysuria, No urinary incontinence Neurologic: + weakness, No memory loss, No numbness/tingling, No vertigo, No balance problems Psychiatric: No depression symptoms, No anxiety Endocrine: No fatigue Hematologic / Lymphatic: No abnormal bleeding/bruising Integumentary: No rash Allergic / Immunologic: No hives Physical Exam Vital Signs (Past 24 Hrs): Date Time Temp Pulse Resp B/P (MAP) Pulse Ox O2 Delivery O2 Flow Rate FiO2 08/01/17 07:57 Room Air 08/01/17 07:34 36.8 67 18 138/84 (102) 96 Room Air 08/01/17 00:00 Room Air 08/01/17 00:00 36.8 64 20 147/85 (105) 98 Room Air 07/31/17 16:30 Room Air 07/31/17 15:01 36.8 57 18 133/82 (99) 98 Room Air 07/31/17 12:30 37.0 78 18 134/71 98 Room Air 07/31/17 11:14 68 18 130/72 98 Room Air 07/31/17 09:32 67 20 137/62 97 Room Air Patient is right-handed. The patient is awake and alert. Speech is normal without aphasia or dysarthria. Mentation and thought processes are intact with orientation and normal fund of knowledge. Mood and affect are normal and appropriate. Appearance and grooming are normal. Long and short-term memory are intact. The discs are sharp with positive venous pulsations. There are no exudates, hemorrhages, or blood vessel changes seen. Pupils are 4mm bilaterally and reactive to light. Extraocular eye muscles are intact without nystagmus. Visual acuity and visual garcia seem normal grossly to confrontation. There are no deficits to sensation of the face bilaterally. Corneal reflexes are positive bilaterally. Facial strength and symmetry is normal bilaterally. Hearing seems intact grossly to voice and finger rub. Palate moves well without asymmetry. There is normal sternocleidomastoid and trapezius strength bilaterally. Tongue is midline with good strength bilaterally. Neck has a somewhat limited range of motion although it is supple and he has some tenderness with turn and tilt to the right. There are no cervical bruits. There are no cranial or ocular bruits. Heart is without murmur. Cervical, thoracic, and lumbar spine are nontender to palpation, including the spinous processes and paraspinal muscles.. Gait is normal. There is good arm swing, turn, stance, and balance. With outstretched arms there is no drift. There are no resting, postural, or action tremors. There is no ataxia with [id number] testing. There is good facility in the hands. There are no abnormal involuntary movements noted. Motor strength is 5/5 in the arms bilaterally including deltoids, biceps, brachioradialis, and wrist flexors and extensors muscles. Intrinsic hand muscles and armored car guard and driver are 5/5 on the right and 4+/5 on the left. No atrophy is noted in the left hand however. Motor strength is 5/5 in the legs bilaterally including hamstring, gastrocnemius, tibialis anterior, tibialis posterior, and peroneii muscles bilaterally. The left hip flexors and quadriceps muscles are 4 to 4+/5 and the right are 5/5. Again, there is no atrophy noted in the left compared to the right. Toe extensors are normal and there is good bulk in the extensor digitorum brevis muscle bilaterally. The limbs have good tone without rigidity or spasticity, and there is no atrophy noted. Muscle bulk is normal, there is no tenderness, no myotonia noted to percussion, and no fasciculations seen. Sensory examination is intact to touch throughout all four limbs. However, there is a noticeable decreased sensation to pinprick in the entire right lower extremity from toes to hip, the right side of the trunk anteriorly and posteriorly to the T5 level. There is mild vibratory sense loss in the feet bilaterally. Reflexes are 2/4 in the biceps, triceps, brachioradialis, and Achilles tendons bilaterally. Quadriceps tendon reflexes are 3/4 bilaterally. There is 1-2 beats of clonus with passive stretch of the ankle on the left but not the right which has no clonus. Toes are downgoing with plantar stimulation bilaterally. Peripheral pulses are present and of normal quality distally in all four limbs. There is no peripheral edema noted. Laboratory Results Past 24 Hours: 08/01/17 07:54 08/01/17 07:54 Test 07/31/17 09:28 07/31/17 12:33 08/01/17 04:44 08/01/17 07:54 Urine Color YELLOW Urine Appearance CLEAR (CLEAR) Urine pH 7.5 (4.5-7.5) Urine Specific [place] 1.012 (1.000-1.030) Urine Protein NEG (NEG) Urine Glucose (UA) NEG (NEG) Urine Ketones NEG (NEG) Urine Occult Blood NEG (NEG) Urine Nitrite NEG (NEG) Urine Bilirubin NEG (NEG) Urine Urobilinogen NEG (NEG) Urine Leukocyte Esterase NEG (NEG) Vitamin B12 Level 536 pg/mL (211-911) Red Blood Count 5.30 M/uL (4.7-6.1) Mean Corpuscular Volume 85.1 fL (80-100) Mean Corpuscular Hemoglobin 30.8 pg (25-34) Mean Corpuscular Hemoglobin Concent 36.1 g/dl (32-36) RDW Standard Deviation 39.6 fL (36.4-46.3) RDW Coefficient of Variation 12.9 % (11.5-14.5) Mean Platelet Volume 9.3 fL (7.4-10.4) Anion Gap 5.0 mmol/L (3-11) Est Creatinine Clear Calc Drug Dose 122.1 ml/min Estimated GFR () 99.5 Estimated GFR (Non- 85.8 BUN/Creatinine Ratio 13.3 (10-20) Calcium Level 8.8 mg/dl (8.5-10.1) Imaging CERVICAL SPINE COMBO HISTORY: Pain. Neuropathy. T5 and below cervical sensory deficit on right,LLE weakness TECHNIQUE: Multiplanar multisequence MRI of the cervical spine was performed both before and after the use of intravenous contrast. COMPARISON STUDY: None. FINDINGS: Limited study technically due to severe patient motion. Normal signal characteristics of the vertebral bodies. Moderate degenerative disc change throughout. Signal characteristics of the cervical cord are remarkable for a focus of increased signal involving the left lateral aspect of the cervical cord at C6-C7. This shows no significant postcontrast enhancement. No additional focal areas of increased signal are present. This measures 6 x 3.7 mm.. C2-C3: No significant central canal or neural foraminal narrowing. C3-C4: Mild broad-based bulging disc. Minimal impact upon the anterior cervical cord. Moderate osteophytic narrowing or right as well as left neural foramina. C4-C5: Broad-based right posterior disc herniation. Moderate impact upon the right anterior cervical cord. Significant narrowing right as well as left neural foramina. C5-C6: Right lateral bulging disc. Significant narrowing of the right neuroforamina. Broad-based central component is in contact with but shows no deformity of the cervical cord. Mild narrowing left neuroforamina. C6-C7: Broad-based right central disc herniation. Considerable narrowing of the right neural foramina. Moderate narrowing of the left neural foramina. Increased signal left lateral aspect of the cervical cord showing no significant post postcontrast enhancement. C7-T1: Broad-based left central bulging disc. No impact upon the cervical cord. IMPRESSION: 1. Limited study technically due to considerable patient motion. 2. Moderate degenerative disc change throughout the entire cervical region. 3. Multilevel broad-based bulging discs with a right central posterior disc herniation at C4-C5 and C6-C7. 4. Considerable narrowing of multilevel right and to lesser extent left neural foramina as described. 5. Focus of increased signal left cervical cord C6-C7 measuring 6 x 3.7 mm. 6. This shows no abnormal postcontrast enhancement. 7. Differential considerations must include a demyelinating disorder, versus the possibility of cord encephalomalacia due to a variety of entities. Transverse myelitis is considered less likely. The above report was generated using voice recognition software. It may contain grammatical, syntax or spelling errors. Electronically signed by: Evin Swartz M.D. 07/31/2017 8:04 PM Impression 1. Acute onset left lower extremity weakness with low back pain. I believe the patient has a mid lumbar radiculopathy giving him proximal left leg weakness. Imaging studies shows no surgical lesion but he has diffuse degenerative changes of disc in bone in the thoracic and lumbar spine. 2. Significant cervical spinal stenosis at C4-5 secondary to disc in bone. Cord is impinged but not compressed. There are other degenerative changes and there is significant right greater than left neural foraminal stenosis diffusely bilaterally The left hand is weaker than the right which I suspect is a left C8 radiculopathy. 3. 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 The etiology of this lesion is not clear. An inflammatory process cannot be excluded including Lyme disease. He has no history to suggest multiple sclerosis or any other acute infectious/inflammatory process. This does not look like transverse myelitis. There could be some encephalomalacia or mechanical aspect of this lesion from previous injury but there is no gross atrophy noted. He has no upper motor neuron signs in the lower extremities otherwise. I do not believe he has an acute myelopathy. The the quadriceps reflexes are brisk but symmetrical. The more distal reflexes are not as brisk and there are no toe extensor signs or clonus present. Plan 1. Lumbar puncture to evaluate for RADIATION ONCOLOGIST inflammatory disease. Check for RADIATION ONCOLOGIST Lyme disease as well. 2. MRI of the brain to evaluate for other white matter lesions. 3. Physical therapy for strengthening of the left leg and hand 4. Avoid any stress to the cervical spine (no chiropractic manipulation and no heavy lifting at work). 5. Consider 1 gram IV Solu-Medrol following the lumbar puncture and follow this with a 1 week tapering course of steroids for anti-inflammatory effect. 6. Depending on his clinical course and the above test results, I would hold off on surgical consultation for cervical spine at this time. I can follow up as an outpatient. I spent a total of 145 minutes caring for this patient, including discussion with Radiology reviewing all films, discussing the case with his primary care team in the hospital, records review, and direct patient evaluation at bedside. I also spent considerable time discussing the films and diagnoses and treatment plan with the patient and his at bedside.
[2017-08-01] MEDS ORDERED: GADAVIST IV PRN (10:45)
--- NOTE | 2017-08-01 11:07 | DIAGNOSTIC IMAGING REPORT ---
MRI OF THE BRAIN WITHOUT AND WITH IV CONTRAST CLINICAL HISTORY: C6-7 cord lesion, look for other FAMILY [employer] SPECIALIST lesions COMPARISON STUDY: MRI the cervical spine dated 07/31/2017 TECHNIQUE: MRI of the brain was performed from the vertex to the skull base utilizing various T1 and T2 weighted sequences. Following the IV administration of 13 mL of Gadavist contrast, additional enhanced images were obtained. FINDINGS: Sagittal T1, axial diffusion, proton density and T2 weighted axial, coronal FLAIR, and pre and post axial T1-weighted images were acquired. These were supplemented with post gadolinium coronal T1 weighted images. No intra or extra-axial mass lesions are visualized. Axial diffusion-weighted images reveal no evidence of acute or subacute infarction. There is no evidence of ventricular dilatation. Proton density T2-weighted and FLAIR images reveal a few tiny foci of increased T2 signal within the white matter, likely on a small vessel basis. There are no abnormal flow voids. There is no evidence of pathologic enhancement. IMPRESSION: 1. No acute intracranial findings 2. No evidence of acute or subacute infarction 3. No evidence of intracranial mass 4. There are few tiny foci of increased T2 signal within the white matter, likely on a small vessel basis. Electronically signed by: Benjamín Mitchell M.D. 08/01/2017 11:06 AM Dictated Date/Time: 08/01/2017 11:03 AM
--- NOTE | 2017-08-01 14:06 | DIAGNOSTIC IMAGING REPORT ---
FLUOROSCOPICALLY GUIDED LUMBAR PUNCTURE CLINICAL HISTORY: C6-7 cord lesion FLUOROSCOPY TIME: 0.1 minute. A single fluoroscopic spot image. PROCEDURE: The procedure, risks and benefits were discussed with the patient including the risk of spinal headache, bleeding and infection. The patient agreed to the procedure and informed written consent was obtained. The procedure was performed by Dr. Louis following a timeout. The left L5-S1 interlaminar space was targeted. Skin overlying the space was prepped and draped in the usual sterile fashion and local anesthesia was achieved with 1% lidocaine. Under intermittent fluoroscopic guidance, a 20-gauge x 3 1/2 in. Sprotte needle was inserted into the thecal sac. A total of 10 cc of clear, colorless cerebral spinal fluid was obtained and spread amongst 4 vials. The patient tolerated the procedure well. There were no immediate complications. The specimens were sent to the laboratory at the request of the referring physician. IMPRESSION: Successful fluoroscopic guided lumbar puncture with removal of 10 cc of clear, colorless cerebral spinal fluid. No immediate complications. Electronically signed by: Estrada Louis M.D. 08/01/2017 2:04 PM Dictated Date/Time: 08/01/2017 2:04 PM
[2017-08-01] MEDS ORDERED: PANTOprazole SOD 40 MG TAB PO STA (15:46)
[2017-08-01] MEDS: METHYLPREDNISOLONE IV SCH ×2 (16:21→21:09)
[2017-08-01] MEDS: DEXTROSE 5% IV SCH ×2 (16:21→21:09)
[2017-08-01] MEDS: ASCORBIC ACID 500 MG TAB PO SCH (17:43)
[2017-08-01] MEDS: MULTIVITAMIN TAB PO SCH (17:43)
[2017-08-01] MEDS: OMEGA-3 (PURIFIED FISH OIL) 1 GM CAP PO SCH (17:43)
[2017-08-02] MEDS: DEXTROSE 5% IV SCH ×2 (04:39→08:25)
[2017-08-02] MEDS: METHYLPREDNISOLONE IV SCH ×2 (04:39→08:25)
[2017-08-02 07:39] VITALS: BP 137/76; PULSE 70; TEMP 36.8; O2SAT 97
[2017-08-02] MEDS ORDERED: PANTOprazole SOD 40 MG TAB PO SCH (08:00)
[2017-08-02] MEDS: OMEGA-3 (PURIFIED FISH OIL) 1 GM CAP PO SCH (08:25)
[2017-08-02] MEDS: MULTIVITAMIN TAB PO SCH (08:25)
[2017-08-02] MEDS: ASCORBIC ACID 500 MG TAB PO SCH (08:25)
[2017-08-02 09:02] LABS: HEMOGLOBIN 17.1 g/dL (14.0-18.0); MEAN CELL VOLUME 84.8 fL (80-100); MEAN CORPUSCULAR HEMOGLOBIN 30.2 pg (25-34); MEAN CORPUSCULAR HGB CONC 35.6 g/dl (32-36); MEAN PLATELET VOLUME 9.9 fL (7.4-10.4); PLATELET COUNT 161 K/uL (130-400); RED CELL DISTRIBUTION WIDTH CV 12.6 % (11.5-14.5); RED CELL DISTRIBUTION WIDTH SD 38.7 fL (36.4-46.3); WHITE BLOOD COUNT 11.17 K/uL (4.8-10.8)
--- NOTE | 2017-08-02 09:10 | Neurology Progress Notes ---
Neurology Progress Note Date of Service Aug 02, 2017. Subjective Patient believes that his left hand is feeling better. There is less weakness. His legs feel stronger as well. It is still little bit weak. He can walk low he limps a little bit. He has much less left forearm pain and tenderness. He is tolerating the steroids well. Nursing reports no new events or issues overnight. MRI of the brain was largely unremarkable with no significant issues or stroke. There were a very few number of tiny, nonspecific old white matter spots. Lumbar puncture showed 0 white cells, 2 red cells, protein of 49, negative Gram stain, negative cryptococcal antigen. Cultures are pending and special protein studies and other inflammatory markers including Lyme disease are pending as well. Laboratory studies have been unremarkable so far. Objective Date Time Temp Pulse Resp B/P (MAP) Pulse Ox O2 Delivery O2 Flow Rate FiO2 08/02/17 07:39 36.8 70 18 137/76 (96) 97 Room Air 08/02/17 00:00 Room Air 08/01/17 22:34 36.8 71 20 129/69 (89) 96 Room Air 08/01/17 16:00 Room Air 08/01/17 15:00 37.0 62 16 126/82 (97) 97 Room Air 08/01/17 14:45 68 16 124/80 (95) 96 Room Air 08/01/17 14:30 70 16 118/77 (91) 96 Room Air 08/01/17 14:15 37.0 73 16 160/81 (107) 96 Room Air Last 24 Hours Test 08/01/17 13:58 08/01/17 14:18 08/01/17 17:09 08/01/17 19:46 CSF Color COLORLESS CSF Appearance CLEAR CSF WBC 0 /uL CSF RBC 2 /uL CSF Xanthrochromic NO XANTHOCHROMIA CSF Cell Count Tube # 3 CSF Chemistry Tube # 1 CSF Glucose 59 mg/dl CSF Total Protein 49.0 mg/dl Bedside Glucose 92 mg/dl 121 mg/dl Test 08/02/17 07:46 08/02/17 08:38 Bedside Glucose 143 mg/dl White Blood Count 11.17 K/uL Red Blood Count 5.66 M/uL Hemoglobin 17.1 g/dL Hematocrit 48.0 % Mean Corpuscular Volume 84.8 fL Mean Corpuscular Hemoglobin 30.2 pg Mean Corpuscular Hemoglobin Concent 35.6 g/dl RDW Standard Deviation 38.7 fL RDW Coefficient of Variation 12.6 % Platelet Count 161 K/uL Mean Platelet Volume 9.9 fL Exam: He is awake and alert. Speech is without aphasia or dysarthria. Extraocular eye muscles are intact without nystagmus. There is no facial droop. Tongue is midline. He can walk but he limps favoring the left leg. He is narrow based. With outstretched arms, there is no drift. There is no resting, postural, or action tremor bilaterally. There is no ataxia [id number] testing. 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 This is similar to yesterday but slightly improved. Current Inpatient Medications Medications (Trade) Dose Ordered Sig/Torin Route Start Time Stop Time Status Last Admin Dose Admin Acetaminophen (Tylenol Tab) 650 mg Q4H PRN PO 07/31/17 11:30 08/30/17 11:29 Polyethylene (Miralax Powder Packet) 17 gm DAILY PRN PO 07/31/17 11:30 08/30/17 11:29 08/02/17 08:35 17 GM Miscellaneous (Iv Fluids Completed) 1 ea PRN PRN N/A 07/31/17 16:30 07/31/18 16:29 Ascorbic Acid (Vitamin C Tab) 500 mg DAILY PO 08/01/17 09:30 08/31/17 09:29 08/02/17 08:25 500 MG Fish Oil ([place]-3 (Purified Fish Oil) Cap) 1 gm DAILY PO 08/01/17 09:30 08/31/17 09:29 08/02/17 08:25 1 GM Multivitamins (Multivitamin Tab) 1 tab DAILY PO 08/01/17 09:30 08/31/17 09:29 08/02/17 08:25 1 TAB Gadobutrol (Gadavist) 13 mmol UD PRN IV 08/01/17 10:45 08/05/17 10:44 Methylprednisolone Sodium Succinate 250 mg/Dextrose 104 ml @ 208 mls/hr Q6H IV 08/01/17 16:00 08/02/17 10:29 08/02/17 08:25 208 MLS/HR Pantoprazole Sodium (Protonix Tab) 40 mg QAM PO 08/02/17 08:00 08/06/17 07:59 08/02/17 08:09 40 MG Impression 1. Acute onset left lower extremity weakness with low back pain. Currently, he has no low back pain. I believe the patient has a mid lumbar radiculopathy giving him proximal left leg weakness. This is improving some. Imaging studies shows no surgical lesion but he has diffuse degenerative changes of disc in bone in the thoracic and lumbar spine. 2. Significant cervical spinal stenosis at C4-5 secondary to disc in bone. Cord is impinged but not compressed. There are other degenerative changes and there is significant right greater than left neural foraminal stenosis diffusely bilaterally The left hand is weaker than the right which I suspect is a left C8 radiculopathy. He is making some improvements of this already. 3. 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 The etiology of this lesion is not clear. An inflammatory process cannot be excluded including Lyme disease. He has no history to suggest multiple sclerosis or any other acute infectious/inflammatory process. This does not look like transverse myelitis. There could be some encephalomalacia or mechanical aspect of this lesion from previous injury but there is no gross atrophy noted. He has no upper motor neuron signs in the lower extremities otherwise. I do not believe he has an acute myelopathy. The the quadriceps reflexes are brisk but symmetrical. The more distal reflexes are not as brisk and there are no toe extensor signs or clonus present. MRI of the brain is unremarkable and he has no white matter lesions of significance. He has some very tiny nonspecific old small vessel ischemic changes consistent with minimal vascular change. Overall, I suspect this lesion is old and, so far, his lumbar puncture is unremarkable with no signs of infection or inflammation. Plan 1. Physical therapy for strengthening of the left leg and hand 2. Avoid any stress to the cervical spine (no chiropractic manipulation and no heavy lifting at work). 3. Finish 1 gram IV Solu-Medrol and follow this with a 1 week tapering course of steroids for anti-inflammatory effect. 4. I would hold off on surgical consultation for cervical spine at this time. I would like to follow up as an outpatient in the next 1-2 weeks. Please contact me if I can be of further assistance on this case.
[2017-08-02 09:27] LABS: CALCIUM 9.2 mg/dl (8.5-10.1); CREATININE 1.08 mg/dl (0.60-1.40); POTASSIUM 4.1 mmol/L (3.5-5.1)
[2017-08-02 09:43] VITALS: BP 137/76; PULSE 70; TEMP 36.8; O2SAT 97
[2017-08-02] MEDS ORDERED: DXM/4 PO (10:28)
[2017-08-02] MEDS ORDERED: OMEP40CA41 PO (10:28)
--- NOTE | 2017-08-02 10:40 | Discharge Instructions ---
Discharge Instructions Date of Service Aug 02, 2017. Admission Reason for Admission: Left leg weakness, numbness in various locations Discharge Discharge Diagnosis / Problem: Left leg and left hand weakness, likely due to DJD in neck/low back Discharge Goals Goal(s): Learn about illness, Diagnostic testing, Therapeutic intervention Activity Recommendations Activity Limitations: as noted below Until you are seen by Dr. Bone and/or his zoning assistant please - 1. avoid heavy lifting over 20 pounds 2. avoid heavy household or outdoor chores that involve lifting, pulling, pushing, etc. 3. avoid going to the gym; attending physical therapy is fine . Instructions / Follow-Up Instructions / Follow-Up From Dr. Healy - You had an extensive work-up for your left leg weakness and numbness. Note that your MRI brain did not show any stroke, tumor, etc. Your lumbar puncture showed no evidence of infection or inflammation. You have a considerable amount of DJD (degenerative joint disease) in your neck , low back, as well as the middle of your back from wear & tear over the years from your job. You were seen in consult by Dr. Bone from neurology who felt that the DJD was causing your symptoms, especially from the neck. He recommended IV steroids while hospitalized and a course of steroid after you leave the hospital. Your symptoms improved with time and with the steroids. There is low suspicion that you have multiple sclerosis, lyme's disease, or other inflammatory neurological disorders. At this time we recommend the following - 1. take a decadron (dexamethasone) steroid taper for 8 days. Start this TOMORROW on 07/24/17. Take the steroid with food. 2. while on the dexamethasone please take omeprazole 40mg once a day in the morning for 10 days. This will help prevent stomach irritation from all the steroids. 3. while on the dexamethasone please STOP your alleve. You can take tylenol as needed for additional pain relief, if necessary. 4. ok to start a PT/OT program; prescription provided; ok to use [facility]. 5. see separate section regarding lifting and activity restrictions. 6. follow-up with Dr. Bone's office in early August as scheduled. 7. see your PCP - Dr. Mattie Stanford - THIS WEEK for hospital follow-up. Please call his office to schedule this. Reasons to return to [facility] - * worsening weakness of any limb * recurrent numbness or tingling * difficulty with your bowels or bladder (specifically - incontinence) * any other concerns Current Hospital Diet Patient's current hospital diet: AHA Diet (Heart Healthy) Discharge Diet Recommended Diet: Regular Diet Procedures Procedures Performed: 1. lumbar puncture - normal 2. MRI head - normal 3. MRI cervical spine (neck) - significant DJD (Degenerative joint disease) 4. MRI thoracic spine (middle of the back) - again DJD seen 5. MRI lumbar spine (low back) - mild DJD seen Pending Studies Studies pending at discharge: yes List of pending studies: various studies from the lumbar puncture including tests to rule out multiple sclerosis (MS) Medical Emergencies . Who to Call and When: Medical Emergencies: If at any time you feel your situation is an emergency, please call 911 immediately. . Non-Emergent Contact Non-Emergency issues call your: Neurologist Call Non-Emergent contact if: your pain is not controlled, your pain is worsening, your pain is unusual for you, your pain is concerning you, you have any medication questions You notice worsening weakness of the arms, hands, legs, or feet. You notice recurrent numbness in any limb or any portion of your body. You have difficulty walking or your walking is getting worse. You have difficulty or loss of bowel/bladder control (incontinence). . . "Provider Documentation" section prepared by Jam Healy. .
--- NOTE | 2017-08-06 13:50 | Discharge Summary ---
Discharge Summary Date of Service Aug 06, 2017. Discharge Summary Admission Date: Aug 01, 2017 at 09:25 Discharge Date: Aug 02, 2017 Discharge Disposition: Home Principal Diagnosis: severe DJD of the cervical spine Problems/Secondary Diagnoses: DJD of the thoracic & lumbar spine abnormal imaging of the cervical spine Immunizations: Have You Had Influenza Vaccine: Yes History of Tetanus Vaccine?: Yes History of Pneumococcal: No History of Hepatitis B Vaccine: Yes Procedures: MRI brain - 1. No acute intracranial findings 2. No evidence of acute or subacute infarction 3. No evidence of intracranial mass 4. There are few tiny foci of increased T2 signal within the white matter, likely on a small vessel basis. MRI cervical spine - IMPRESSION: 1. Limited study technically due to considerable patient motion. 2. Moderate degenerative disc change throughout the entire cervical region. 3. Multilevel broad-based bulging discs with a right central posterior disc herniation at C4-C5 and C6-C7. 4. Considerable narrowing of multilevel right and to lesser extent left neural foramina as described. 5. Focus of increased signal left cervical cord C6-C7 measuring 6 x 3.7 mm. 6. This shows no abnormal postcontrast enhancement. 7. Differential considerations must include a demyelinating disorder, versus the possibility of cord encephalomalacia due to a variety of entities. Transverse myelitis is considered less likely. MRI thoracic spine - IMPRESSION: Moderate degenerative disc change throughout the entire thoracic region. No major compromise of the spinal canal or neural foramina. No abnormal postcontrast enhancement. Minimal/mild multilevel disc bulges MRI lumbar spine - IMPRESSION: 1. Mild multilevel spondylitic changes. No evidence of significant spinal or foraminal stenosis. 2. 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 Rapid tapering of the thecal sac at the S1 level, likely developmental CT head - normal LP under fluoro-guidance by radiology Consultations: neurology - Lyndon Bone MD PT, OT Medication Reconciliation New Medications: Dexamethasone (Decadron) 4 Mg Tab 4 MG PO DIRECTED, #13 TAB start 08/03: take 1 tab TID x 2 dys, then 1 tab BID x 2 dys, then 1 tab qd x 2 dys, then 1/2 tab x 2 dys. Omeprazole (Prilosec) 40 Mg Cap 1 CAP PO QAM for 10 Days, #10 CAP 0 Refills Continued Medications: Ascorbic Acid (Ascorbic Acid) 500 Mg Tab 500 MG PO DAILY, TAB Fish Oil ([place]-3) 1 Ea Cap 1 CAP PO DAILY, CAP Multivitamin (Multivitamin) Tab 1 TAB PO DAILY, TAB Discharge Exam Physical Exam: General Appearance: no apparent distress, + obese ENT: pharynx normal Neck: no JVD Respiratory/Chest: lungs clear, no respiratory distress, no accessory muscle use Cardiovascular: regular rate, rhythm, no gallop, no murmur, normal peripheral pulses Abdomen / GI: normal bowel sounds, non tender, soft, no organomegaly Extremities: no pedal edema Neurologic/Psychiatric: alert, oriented x 3, + motor weakness (hip flexion, left, 4/5; all other muscle groups of LEs 5/5; handgrip, right, 5/5; handgrip, left 4-5/5) Hospital Course HISTORY OF PRESENT ILLNESS: Mr. 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 He does usually experience the feeling of legs "falling asleep" when he drives however it usually clears up after getting up out of the car. This time the feeling persisted. He had some relief after seeing a chiropractor yesterday. Numbness went from both legs to just left leg. He feels like his leg might give out when he walks. He really has no pain and has taking Aleve last night and yesterday. No loss of control of bowel or bladder. He is eating and drinking normally. HOSPITAL COURSE: The patient underwent an extensive radiological and biochemical work-up for his presenting neurological symptoms. He had normal/negative lyme's testing, TSH, B12, RPR, electrolytes, etc. MRI of the cervical, lumbar, and thoracic spines showed considerable DJD throughout the entire spine but especially the neck. In addition, there was a lesion at the C6-C7 level of undetermined significance , but thought to be possibly chronic in nature. Dr. Lyndon Bone from neurology was consulted, and lumbar puncture was recommended. There was no evidence of any infectious or inflammatory condition as cell counts were normal and total protein level was largely normal. To be complete fluid was sent for oligoclonal bands to rule out MS. Following his negative work-up Dr. Bone recommended IV solumedrol and by the next day most of his neurological symptoms were significantly improved. At discharge his paresthesias were resolved. He had only very mild, residual weakness in his left hand and had mild weakness with left hip flexion. At time of discharge it was felt that his symptoms were due to significant DJD of the spine. He was seen by PT prior to discharge and did well from a PT standpoint. With that said outpatient PT was recommended for his symptoms and to help strengthen his hand/leg. At discharge a steroid taper was advised, and he will have close neurological follow-up with Dr. Bone's office. Total Time Spent: Greater than 30 minutes This includes examination of the patient, discharge planning, medication reconciliation, and communication with other providers. Discharge Instructions Please refer to the electronic Patient Visit Report (Discharge Instructions) for additional information. Follow-Up [facility] - Mitra Fernandez PA-C - FridayAugust 13 at 2:00 pm Additional Copies To James Herr M.D.; Mitra Fernandez; Mariya Bone M.D.
== END 2017-08-02 15:10 | disposition home or self-care (01) | DRG 552 ==
LOC: C.EDB 04:52 → C.MS4W 11:29 → ENRESERV 11:46 → OBSVTOIN 08-01 09:25
PROVIDERS: ADMIT Internal Medicine; ATTEND Internal Medicine
PROC: 009U3ZX Drainage of Spinal Canal, Percutaneous Approach, Diagnostic (ICD-10-PCS; principal; 2017-08-01)
DX: M47.22 Other spondylosis with radiculopathy, cervical region (principal); G95.9 Disease of spinal cord, unspecified; M50.121 Cervical disc disorder at C4-C5 level with radiculopathy; M47.814 Spondylosis without myelopathy or radiculopathy, thoracic region; M47.26 Other spondylosis with radiculopathy, lumbar region; G89.29 Other chronic pain; M54.5 Low back pain; R27.0 Ataxia, unspecified